=== PATIENT | male | born 1985 | race Caucasian/White ===

== ENCOUNTER 2020-07-15 14:26 | Emergency (ER) | payer MEDICAID, OTHER ==
[~2020-07-15] VITALS: Ht 188 cm; Wt 86.0 kg
[2020-07-15] MEDS: LORazepam 1 MG tablet PO PRN (15:24)
[2020-07-15 15:31] LABS: CLARITY,URINE SLIGHTLY CLOUDY (Clear); COLOR,URINE YELLOW (Yellow); GLUCOSE, URINE NEGATIVE (Neg); KETONES,URINE NEGATIVE (Neg); LEUKOCYTE ESTERASE ,URINE NEGATIVE (Neg); NITRITES, URINE NEGATIVE (Neg); OCCULT BLOOD,URINE NEGATIVE (Neg); PROTEIN,URINE NEGATIVE (Neg)
[2020-07-15 15:38] LABS: UA COLLECTION TYPE CLN CATCH MIDSTREAM
[2020-07-15 15:39] LABS: MUCUS STRANDS MANY /LPF (Neg); SQUAMOUS EPITHELIAL CELL,UR NONE SEEN /LPF (FEW); TRANSITIONAL EPI CELLS,URINE FEW /HPF
[2020-07-15 15:40] LABS: AMORPHOUS URATES 3+; BACTERIA,URINE FEW /HPF (Neg); RBC,URINE 0-2 /HPF (0-2); WBC,URINE 0-4 /HPF (0-4)
[2020-07-15 15:44] LABS: URINE AMPHETAMINE SCREEN NEGATIVE (Neg); URINE BARBITUATE SCREEN NEGATIVE (Neg); URINE BENZODIAZEPINES SCREEN NEGATIVE (Neg); URINE CANNABINOID SCREEN NEGATIVE (Neg); URINE COCAINE SCREEN NEGATIVE (Neg); URINE METHADONE SCREEN NEGATIVE (Neg); URINE OPIATE SCREEN NEGATIVE (Neg); URINE PHENCYCLIDINE SCREEN NEGATIVE (Neg)
--- NOTE | 2020-07-15 16:16 | NUR ---
Patient laying in bed with his evp chief exploration officer at his side. Patient looks very depressed. environmental health officer is waiting to see if patient will be released or placed on a hold. SJ Cruz spoke to SJ Guthrie who worked at [facility]. She suggested a 1 to 1 because she knows who serious the prisoners can be when they want to kill themselves. Patient would not tell me why he wanted to kill himself and Jerri described some scenarios that often happen in the residential. Jerri to go speak to the charge weigher to suggest a 1:1 on this patient for his safety. Continue to monitor.
[2020-07-15 16:26] LABS: HEMOGLOBIN 11.6 g/dl (14.0-17.9); MEAN PLATELET VOLUME 7.9 FL (7.4-10.4); MONOCYTES # (AUTO) 0.5 X10'3 (0-0.9); WHITE BLOOD COUNT 6.1 X10'3 (4.5-11.0)
[2020-07-15 16:28] LABS: BASOPHILS % (AUTO) 0.7 % (0-1); EOSINOPHILS % (AUTO) 0.8 % (0-6); HEMATOCRIT 34.6 % (42.0-52.0); LYMPHOCYTES # (AUTO) 1.3 X10'3 (1.1-4.8); LYMPHOCYTES % (AUTO) 20.8 % (21-51); MEAN CORPUSCULAR HEMOGLOBIN 26.7 PG (27.0-31.0); MEAN CORPUSCULAR HGB CONC 33.4 g/dL (33.0-36.5); MEAN CORPUSCULAR VOLUME 79.7 FL (78-98); NEUTROPHILS # (AUTO) 4.2 X10'3 (1.8-7.7); NEUTROPHILS % (AUTO) 69.7 % (42-75); PLATELET COUNT 432 X10'3 (140-440); RED BLOOD COUNT 4.35 X10'6 (4.70-6.10); RED CELL DISTRIBUTION WIDTH 14.5 % (11.5-14.5)
[2020-07-15 16:39] LABS: ALANINE AMINOTRANSFERASE 27 U/L (12-78); ALBUMIN 3.6 G/DL (3.4-5.0); ALBUMIN/GLOBULIN RATIO 1.2 (1.1-1.5); ALKALINE PHOSPHATASE 62 IU/L (46-116); ANION GAP 8 (8-16); ASPARTATE AMINO TRANSFERASE 13 U/L (10-37); BILIRUBIN,TOTAL 0.3 MG/DL (0.1-1.0); BLOOD UREA NITROGEN 21 MG/DL (7-18); BUN/CREATININE RATIO 19.3 (5.4-32.0); CHLORIDE 104 MMOL/L (99-107); CREATININE 1.09 MG/DL (0.60-1.10); GLUCOSE 109 MG/DL (70-104); POTASSIUM 4.6 MMOL/L (3.5-5.1); SODIUM 140 MMOL/L (135-145); TOTAL PROTEIN 6.5 G/DL (6.4-8.2); eGFR 77 ML/MIN
[2020-07-15 16:48] LABS: ETHANOL < 0.010 GM/DL (0.0-0.010)
--- NOTE | 2020-07-15 16:53 | NUR ---
Matthieu RINCON, evaluating patient.
--- NOTE | 2020-07-15 16:59 | NUR ---
FAXED [facility]
--- NOTE | 2020-07-15 20:20 | NUR ---
Patient resting, lying on back. chest rising and falling . In no apparent distress. Will continue to monitor
--- NOTE | 2020-07-15 22:51 | NUR ---
Patient resting, and snoring. In no distress at this time. Will continue to moniter.
--- NOTE | 2020-07-16 01:59 | NUR ---
Patient just repositioned himself, is now lying on his right side, and in no apparent distress. Will continue to monitor.
--- NOTE | 2020-07-16 03:02 | NUR ---
Patient awake asking for water, and is requesting to call his Crime Data Specialist. He was tiold to wait until later to use the phone. Patient was okay with that and is now in the bathroom.
--- NOTE | 2020-07-16 04:07 | NUR ---
Patient is in bed , chest falling and rising, in no apparent distress.
--- NOTE | 2020-07-16 05:18 | NUR ---
Patient is in bed awake, he keeps checking the time. Manoj wants to call his flight deck officer.
--- NOTE | 2020-07-16 06:42 | NUR ---
Pt. laying in bed on his back, he greets this group underwriter appropriately, rr are even and unlabored.
--- NOTE | 2020-07-16 08:40 | NUR ---
Pt. up to use the BR, able to do so independently, no s/s of distress noted. He then returns back to bed.
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
--- NOTE | 2020-07-16 10:19 | NUR ---
BROTHER SHILPI: [phone]
--- NOTE | 2020-07-16 10:39 | NUR ---
Pt. continues to lay in bed on his back at this time, rr remain even and unlabored.
[2020-07-16] MEDS ORDERED: NO HOME MEDS (12:28)
--- NOTE | 2020-07-16 12:45 | NUR ---
Pt. continues to lay in bed at this time, rr even and unlabored
--- NOTE | 2020-07-16 14:04 | NUR ---
Pt's father is here talking with him at this time per [facility].
--- NOTE | 2020-07-16 14:50 | NUR ---
Pt. continues to lay in bed, father remains at bedside, no s/s of distress noted.
--- NOTE | 2020-07-16 15:56 | NUR ---
Pt's brother visiting with pt. at bedside at this time. Per [facility], pt's family lives out of town so it is important for him to visit with them before he is transferred to another facility. Pt. will possibly transfer to [facility] in [place].
--- NOTE | 2020-07-16 16:21 | NUR ---
Per [facility], pt. will be transferred to [facility] in [place] with pickup time at 1900. Addendum: 07/16/20 at 6271 by [facility]
--- NOTE | 2020-07-16 16:30 | NUR ---
Pt. reported that he had a good visit with his brother, and now his other brother is in to visit at this time. Pt. continues to sit up in bed and remains calm and cooperative during the conversation.
--- NOTE | 2020-07-16 17:50 | NUR ---
Pt. reported anxiety and BP slightly elevated reflecting this, PRN Ativan administered. Will monitor.
[2020-07-16] MEDS: LORazepam 1 MG tablet PO PRN (17:53)
--- NOTE | 2020-07-16 18:05 | NUR ---
Pt. sitting up in bed eating dinner at this time, no s/s of distress noted.
--- NOTE | 2020-07-16 18:49 | NUR ---
Per Johana JUAREZ, pt. needs Covid Swab before he can come to facility. Endorsed to Noc shift who will obtain swab and fax per facility's request.
--- NOTE | 2020-07-16 18:51 | NUR ---
spoke with susie madera regarding [facility] facility request for pt to be COVID swabbed. received verbal order for rapid COVID swab. order placed as received and will fax result to [facility] when available
--- NOTE | 2020-07-16 19:15 | NUR ---
pt laying in bed with no/minimal interactions with staff and no interactions with peers. 1:1 bedside assessment completed and pt appears to be severely minmizing symptoms. pt denies suicidal ideation, self harming thoughts, homicial ideation, auditory or visual hallucinations, or delusions. pt has a depressed affect and does not elaborate when asked about why he is here. pt covid swabbed without issue and results will be faxed to [facility] when available
--- NOTE | 2020-07-16 19:51 | NUR ---
susie madera and charger operator helper nick made aware of pt being high risk due to recent suicide attempt. pt continues to deny all and per susie madera, pt does not require 1:1 observation and continued line of sight observation is acceptable at this time. will continue to monitor pt as line of sight as pt is in bed 23 with no current behaviors or issues.
--- NOTE | 2020-07-16 20:03 | NUR ---
faxed negative COVID test result to [facility] at [phone]. their phone number is [phone]
--- NOTE | 2020-07-16 21:05 | NUR ---
MOVED FROM OVERFLOW AREA TO MAIN ER BED 16
--- NOTE | 2020-07-16 21:10 | NUR ---
pt moved to ed bed 16
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
--- NOTE | 2020-07-17 08:50 | NUR ---
rcvd call from [facility] pt is set to arrive there at 1330, spoke to Davonte Rios [phone] admissions number is [phone]
--- NOTE | 2020-07-17 10:00 | NUR ---
PT SITTING UP IN BED AFTER WALKING TO BATHROOM, NO DISTRESS NOTED.
--- NOTE | 2020-07-17 12:05 | NUR ---
PATIENT RESTING COMFORTABLE ON RIGHT SIDE, NO SIGNS OF DISTRESS.
--- NOTE | 2020-07-17 16:10 | NUR ---
PT ALERT NO DISTRESS NOTED. NO NEEDS AT THIS TIME.
--- NOTE | 2020-07-17 16:11 | NUR ---
CALLED [facility] OFFICE AND PT WAS REJECTED FROM [facility] AFTER REVIEWING CHART. STILL LOOKING FOR PLACEMENT.
--- NOTE | 2020-07-17 19:15 | NUR ---
pt up to use the restroom. pt has a steady gait, no distress noted.
--- NOTE | 2020-07-17 19:15 | NUR ---
pt is reluctant to discuss anything with this rn. Pt denies any complaints at this time.
[2020-07-17] MEDS ORDERED: acetaminophen 325mg tablet PO ONE (19:20)
--- NOTE | 2020-07-17 20:03 | NUR ---
pt is resting quietly, will not discuss anything, appears annoyed when asked questions.
--- NOTE | 2020-07-17 23:17 | NUR ---
pt continues to sleep, rr unlabored, no s/s of distress noted.
--- NOTE | 2020-07-18 01:05 | NUR ---
Pt is sleeping, rr unlabored, will continue to monitor.
--- NOTE | 2020-07-18 06:22 | NUR ---
Received report on the patient from cook night. The patient was asleep on his back, his respirations appeared normal and was not in any distress at this time.
--- NOTE | 2020-07-18 07:16 | NUR ---
patient is awake laying in bed looking up at ceiling, the tech and myself asked him if he needed anything and he decided not to answer. His respirations appear normal and he is not in any distress at this time.
--- NOTE | 2020-07-18 08:24 | NUR ---
the patient is awake and laying in the bed in the supine position with his hands behind his head. The patient refused his breakfast and does not use his words very often more so just his hands. The patient's respirations appear normal and he is not in any distress at this time.
--- NOTE | 2020-07-18 09:05 | NUR ---
Breaking Primary RN, pt is supine in bed, eyes closed, regular breathing apparent, no needs at this time
--- NOTE | 2020-07-18 09:29 | NUR ---
the patient is laying on his back with his hands behind his head with his eyes closed at this time. The patient's respirations appeared normal and in no distress at this time.
--- NOTE | 2020-07-18 10:31 | NUR ---
patient is laying on his back awake, his respirations appear normal and he is not in any distress at this time.
--- NOTE | 2020-07-18 11:36 | NUR ---
the patient is resting comfortably in his bed laying on his back, one of the patient's brothers arrived at bedside to visit him. The patient's respirations appear normal and he is not in any distress at this time.
--- NOTE | 2020-07-18 12:08 | NUR ---
patient's brother Fermín has left the bedside, now patient's brother Andrzej is at bedside. The patient continues to be in stable condition resting comfortably on his back with his hands behind his head. his respirations appear normal and he is not in any distress at this time.
--- NOTE | 2020-07-18 13:10 | NUR ---
Breaking primary RN, pt is supine in bed, eyes closed, regular breathing present, no needs at this time
--- NOTE | 2020-07-18 13:48 | NUR ---
the patient is sleeping at this time laying on his back, his respirations appear normal and he is not in any distress at this time.
--- NOTE | 2020-07-18 14:30 | NUR ---
patient is currently laying in bed with the covers pulled up to his neck and sleeping. The patient's respirations appear normal and there are no signs of distress at this time.
--- NOTE | 2020-07-18 15:24 | NUR ---
the patient is resting comfortably in bed at the moment, his respirations appear normal and he is not in any distress at this time.
--- NOTE | 2020-07-18 16:24 | NUR ---
the patient is awak and laying on his right side with his hands above his head. The patient's respirations appear normal and he is not in any distress at this time.
--- NOTE | 2020-07-18 17:25 | NUR ---
the patient was laying awake in the bed, when the tech went to do vital signs. The patient's respirations appeared normal and there were no signs of distress. After the vitals were completed the patient resumed laying awake.
--- NOTE | 2020-07-18 19:11 | NUR ---
Patient has been sleeping since shift change. Low fowlers position. No distress. In direct view from nurses station.
--- NOTE | 2020-07-18 21:42 | NUR ---
Patient is sleeping quietly, low fowlers position in bed.
[2020-07-18 21:59] VITALS: BP 122/79
[2020-07-18] MEDS ORDERED: FLU VACC QS2020-21(6MOS UP)/PF 60 MCG/0.5 ML SYRINGE IMVAC ONE (22:00)
[2020-07-19] MEDS ORDERED: traZODone 50mg tablet PO SCH (20:00)
[2020-07-20] MEDS ORDERED: lurasidone 20mg tablet PO SCH (07:30)
== END 2020-07-18 22:04 ==
LOC: ER 14:27 → ADULT MH 07-18 15:20 → UNDOADMIN 07-18 15:20
DX: F32.9 Major depressive disorder, single episode, unspecified (principal); Z20.828 Contact with and (suspected) exposure to other viral communicable diseases; R45.851 Suicidal ideations; F12.90 Cannabis use, unspecified, uncomplicated; F15.90 Other stimulant use, unspecified, uncomplicated
CPT/HCPCS: 36415; 80053; 80305; 80320; 81001; 84443; 85025; 87081; 87635; 99285; C9803

== ENCOUNTER 2023-02-11 11:36 | Inpatient (IN) | payer MEDICAID, OTHER ==
[~2023-02-11] VITALS: Ht 188 cm; Wt 78.6 kg
[~2023-02-11 11:36] MED LIST: BUPR-72 PO; BUSP10TA10 PO; LORA-269 PO; LURA20TA8 PO; SERT-433 PO; TRAZ-256 PO
[2023-02-11 13:15] LABS: BASOPHILS % (AUTO) 0.4 % (0-1); EOSINOPHILS % (AUTO) 0.5 % (0-6); HEMATOCRIT 48.3 % (42.0-52.0); HEMOGLOBIN 16.3 g/dl (14.0-17.9); LYMPHOCYTES # (AUTO) 1.2 X10'3 (1.1-4.8); LYMPHOCYTES % (AUTO) 15.3 % (21-51); MEAN CORPUSCULAR HGB CONC 33.7 g/dL (33.0-36.5); MEAN CORPUSCULAR VOLUME 82.9 FL (78-98); MEAN PLATELET VOLUME 8.1 FL (7.4-10.4); MONOCYTES # (AUTO) 0.7 X10'3 (0-0.9); MONOCYTES % (AUTO) 8.4 % (2-12); NEUTROPHILS % (AUTO) 75.4 % (42-75); PLATELET COUNT 307 X10'3 (140-440); RED BLOOD COUNT 5.83 X10'6 (4.70-6.10); RED CELL DISTRIBUTION WIDTH 14.5 % (11.5-14.5); WHITE BLOOD COUNT 7.9 X10'3 (4.5-11.0)
[2023-02-11 13:43] LABS: ALANINE AMINOTRANSFERASE 29 U/L (12-78); ALBUMIN/GLOBULIN RATIO 1.3 (1.1-1.5); ALKALINE PHOSPHATASE 45 IU/L (46-116); ANION GAP 10 (8-16); ASPARTATE AMINO TRANSFERASE 17 U/L (10-37); BILIRUBIN,TOTAL 0.6 MG/DL (0.1-1.0); BLOOD UREA NITROGEN 13 MG/DL (7-18); BUN/CREATININE RATIO 13.7 (10.0-20.0); CALCIUM 9.5 MG/DL (8.5-10.1); CHLORIDE 103 MMOL/L (99-107); CREATININE 0.95 MG/DL (0.60-1.10); ETHANOL < 10 MG/DL (<10); GLUCOSE 104 MG/DL (70-104); POTASSIUM 3.7 MMOL/L (3.5-5.1); SODIUM 140 MMOL/L (135-145); TOTAL CARBON DIOXIDE 27.4 MMOL/L (24-32); eCRCL 124 ML/MIN; eGFR 89 ML/MIN
[2023-02-11 13:53] LABS: URINE AMPHETAMINE SCREEN POSITIVE (Neg); URINE BARBITUATE SCREEN NEGATIVE (Neg); URINE BENZODIAZEPINES SCREEN NEGATIVE (Neg); URINE CANNABINOID SCREEN NEGATIVE (Neg); URINE COCAINE SCREEN NEGATIVE (Neg); URINE METHADONE SCREEN NEGATIVE (Neg); URINE OPIATE SCREEN NEGATIVE (Neg); URINE PHENCYCLIDINE SCREEN NEGATIVE (Neg)
--- NOTE | 2023-02-11 14:23 | NUR ---
Patient brought to ER overflow bed 24 from main ER. He ambulated accompanied by [facility].
[2023-02-11] MEDS ORDERED: CLON0.5T4 PO (15:22)
[2023-02-11] MEDS ORDERED: traZODone 50mg tablet PO PRN (16:15)
[2023-02-11] MEDS ORDERED: clonazePAM 0.5mg tablet PO PRN ×2 (16:15→20:35)
--- NOTE | 2023-02-11 16:34 | NUR ---
Patient lying on his back with eyes open. No s/sx of distress
[2023-02-11] MEDS ORDERED: BUPR-230 PO (17:20)
--- NOTE | 2023-02-11 17:54 | NUR ---
Patient with [facility] at this time.
[2023-02-11] MEDS ORDERED: BUSP15TA3 PO (18:20)
[2023-02-11] MEDS ORDERED: FLO44IN PO (18:20)
[2023-02-11] MEDS ORDERED: BUPR-352 PO (18:20)
[2023-02-11] MEDS ORDERED: CETI10TA14 PO (18:20)
--- NOTE | 2023-02-11 18:30 | NUR ---
Assumed patient care. Pleasant and cooperative. Sitting on bed. Will continue to monitor.
--- NOTE | 2023-02-11 19:00 | NUR ---
Yonatan came to visit. [facility] completed evaluation. Plans to transfer to [facility] this evening.
[2023-02-11] MEDS ORDERED: ALBU18HF2 INH (19:46)
[2023-02-11] MEDS ORDERED: buPROPion SR 150mg tablet PO SCH ×2 (20:00)
[2023-02-11] MEDS ORDERED: albuterol 2.5 MG/3 ML nebule NEB PRN (20:38)
[2023-02-11] MEDS: busPIRone 15mg tablet PO SCH (20:57)
[2023-02-11 21:00] LABS: BILIRUBIN,URINE MODERATE (Neg); CLARITY,URINE CLOUDY (Clear); COLOR,URINE YELLOW (Yellow); GLUCOSE, URINE NEGATIVE (Neg); KETONES,URINE 15 mg/dl (Neg); LEUKOCYTE ESTERASE ,URINE NEGATIVE (Neg); NITRITES, URINE NEGATIVE (Neg); OCCULT BLOOD,URINE NEGATIVE (Neg); PROTEIN,URINE NEGATIVE (Neg)
[2023-02-11] MEDS ORDERED: busPIRone 5mg tablet PO SCH (21:00)
[2023-02-11 21:54] LABS: UA COLLECTION TYPE CLN CATCH MIDSTREAM
[2023-02-11 21:55] LABS: MUCUS STRANDS MANY /LPF (Neg); SQUAMOUS EPITHELIAL CELL,UR NONE SEEN /LPF (FEW)
[2023-02-11 21:56] LABS: BACTERIA,URINE FEW /HPF (Neg); RBC,URINE NONE SEEN /HPF (0-2); WBC,URINE 0-4 /HPF (0-4)
[2023-02-11 21:57] LABS: WBC CASTS 0-3 /LPF (NEGATIVE)
--- NOTE | 2023-02-11 23:00 | NUR ---
Patient appears to be sleeping. Pending discharge this evening to [facility].
--- NOTE | 2023-02-11 23:42 | NUR ---
Sudarshan EMT here to transfer patient to [facility]. Discharged at this time via W/C. Security here for transport.
[2023-02-11 23:48] VITALS: BP 124/79; PULSE 70; RESP 16; TEMP 97.8; O2SAT 98
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
[2023-02-12 00:49] VITALS: RESP 16; O2SAT 98
[2023-02-12 07:00] VITALS: RESP 12; O2SAT 97
[2023-02-12 08:00] VITALS: BP 116/75; PULSE 80; RESP 14; TEMP 98.5; O2SAT 99
[2023-02-12] MEDS: cetirizine 10mg tablet PO SCH (08:00)
[2023-02-12] MEDS: busPIRone 15mg tablet PO SCH ×3 (08:00→21:05)
[2023-02-12] MEDS: buPROPion SR 150mg tablet PO SCH ×2 (08:00→10:36)
[2023-02-12] MEDS: FLUTICASONE PROPIONATE PO SCH ×2 (08:00→21:05)
[2023-02-12] MEDS ORDERED: sertraline 50mg tablet PO ONE (08:00)
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
[2023-02-12 19:00] VITALS: RESP 16; O2SAT 97
[2023-02-12 20:00] VITALS: RESP 17
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
--- NOTE | 2023-02-13 06:06 | NUR ---
HOUSEKEEPER SUPERVISOR documentation: I have reviewed and agree with all interventions, assessments performed and documented by Ammon MANUEL.
[2023-02-13] MEDS: buPROPion SR 150mg tablet PO SCH ×2 (07:33→08:28)
[2023-02-13] MEDS: cetirizine 10mg tablet PO SCH ×2 (07:33→08:28)
[2023-02-13] MEDS: busPIRone 15mg tablet PO SCH ×3 (07:33→20:00)
[2023-02-13 08:00] VITALS: BP 128/81; PULSE 66; RESP 18; TEMP 97.8; O2SAT 99
[2023-02-13] MEDS: budesonide 0.5mg/2ml UD nebule IH SCH ×3 (10:15→20:44)
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
[2023-02-13 19:00] VITALS: RESP 18
[2023-02-13 20:00] VITALS: RESP 18
--- NOTE | 2023-02-13 20:11 | NUR ---
Pt refused vital signs Addendum: 02/13/23 at 2012 by Ammon Jerry LVN, LVN Amended: Links added.
[2023-02-13 20:45] VITALS: PULSE 79; RESP 20; O2SAT 99
[2023-02-13 20:52] VITALS: PULSE 84; RESP 16
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
[2023-02-14 07:00] VITALS: RESP 16
[2023-02-14] MEDS: busPIRone 15mg tablet PO SCH ×2 (08:00→20:57)
[2023-02-14] MEDS: buPROPion SR 150mg tablet PO SCH (08:00)
[2023-02-14] MEDS: cetirizine 10mg tablet PO SCH (08:00)
[2023-02-14] MEDS: budesonide 0.5mg/2ml UD nebule IH SCH ×2 (08:19→20:28)
[2023-02-14] MEDS ORDERED: LORazepam 1 MG tablet PO ONE (13:15)
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
[2023-02-14 19:00] VITALS: RESP 18
[2023-02-14 20:00] VITALS: RESP 16
[2023-02-14] MEDS ORDERED: clonazePAM 0.5mg tablet PO SCH (20:00)
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
--- NOTE | 2023-02-15 05:45 | NUR ---
CABIN SUPERVISOR documentation: I have reviewed and agree with all interventions, assessments performed and documented by Ammon MANUEL.
[2023-02-15 07:00] VITALS: RESP 16
[2023-02-15 08:00] VITALS: RESP 16
[2023-02-15] MEDS: cetirizine 10mg tablet PO SCH (08:00)
[2023-02-15] MEDS: busPIRone 15mg tablet PO SCH ×2 (08:00→20:15)
[2023-02-15] MEDS: clonazePAM 0.5mg tablet PO SCH ×2 (08:00→20:20)
[2023-02-15] MEDS: buPROPion SR 150mg tablet PO SCH (08:00)
[2023-02-15] MEDS: budesonide 0.5mg/2ml UD nebule IH SCH (08:48)
--- NOTE | 2023-02-15 12:21 | NUR ---
CASE MANAGEMENT This Visiting Teacher went to see Pt. today. He refused to speak with me. He was laying on his bed starting straight ahead. Let him know I would come back another time. Marge Braga LCSW
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
[2023-02-15 20:00] VITALS: RESP 16
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
[2023-02-16] MEDS: cetirizine 10mg tablet PO SCH (08:00)
[2023-02-16] MEDS: buPROPion SR 150mg tablet PO SCH (08:00)
[2023-02-16] MEDS: clonazePAM 0.5mg tablet PO SCH ×2 (08:00→19:53)
[2023-02-16] MEDS: busPIRone 15mg tablet PO SCH ×2 (08:00→19:53)
[2023-02-16] MEDS: budesonide 0.5mg/2ml UD nebule IH SCH (08:42)
[2023-02-16] MEDS ORDERED: LORazepam 1 MG tablet PO ONE (17:10)
[2023-02-16] MEDS: ibuprofen 200mg tablet PO PRN (17:15)
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
[2023-02-16] MEDS: LORazepam 1 MG tablet PO SCH (20:20)
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
[2023-02-17 07:30] VITALS: BP 122/77; PULSE 68; RESP 16; TEMP 99.1; O2SAT 16; O2SAT 99
[2023-02-17] MEDS: busPIRone 15mg tablet PO SCH ×2 (08:00→20:13)
[2023-02-17] MEDS: cetirizine 10mg tablet PO SCH (08:00)
[2023-02-17] MEDS: LORazepam 1 MG tablet PO SCH ×3 (08:26→20:13)
[2023-02-17] MEDS: traMADol 50MG tablet PO PRN ×2 (09:18→16:09)
[2023-02-17] MEDS: ibuprofen 200mg tablet PO PRN (09:23)
[2023-02-17] MEDS: LORazepam 0.5 MG tablet PO PRN (11:33)
--- NOTE | 2023-02-17 12:39 | NUR ---
Initial: Pt admit for DTS with SI. Currently on a regular diet with fluctuating PO intake, documented with average 81% PO intake of nine meals though refusal of six meals making average PO intake since admit 48% only meeting 59% estimated energy needs and 80% estimated protein needs. Noted PO intake up to 100% at two most recent meals. Hopefully PO intake will continue to improve. Per cone chocolate dipper pt does participate in snacks with occasional refusal. LBM 02/13 per EMR however pt documented to be refusing the physical assessments so unsure if this is patient's true LBM. Pt documented with no GI symptoms. D/w dietary to send prunes and prune juice with next meal to assist with a BM should this actually be patients LBM. Will continue to follow and monitor need for further nutrition intervention. Recommendations: 1) Continue regular diet 2) Encourage PO intake; monitor need for ONS 3) Consider routine bowel care if pt truly has not had a BM x 4 days 4) Weekly scaled weights Addendum: 02/17/23 at [address] Amended: Links added.
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
[2023-02-17 19:30] VITALS: RESP 17; O2SAT 99
[2023-02-17 20:00] VITALS: BP 114/77; PULSE 57; RESP 17; TEMP 97.1; O2SAT 99
[2023-02-17] MEDS: traZODone 50mg tablet PO PRN (20:13)
[2023-02-17] MEDS: NICOTINE POLACRILEX 2 MG LOZENGE BC PRN (20:13)
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
[2023-02-18 07:00] VITALS: RESP 16
[2023-02-18 08:00] VITALS: RESP 12
[2023-02-18] MEDS: cetirizine 10mg tablet PO SCH (08:00)
[2023-02-18] MEDS: LORazepam 1 MG tablet PO SCH ×3 (08:56→21:00)
[2023-02-18] MEDS: busPIRone 15mg tablet PO SCH ×2 (08:56→20:00)
[2023-02-18] MEDS: traMADol 50MG tablet PO PRN ×2 (08:57→15:06)
[2023-02-18] MEDS: NICOTINE POLACRILEX 2 MG LOZENGE BC PRN (11:25)
[2023-02-18] MEDS: LORazepam 0.5 MG tablet PO PRN (11:32)
[2023-02-18] MEDS: ibuprofen 200mg tablet PO PRN (15:05)
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
[2023-02-18 19:00] VITALS: RESP 14
[2023-02-18 20:00] VITALS: RESP 14
[2023-02-18] MEDS: buPROPion SR 150mg tablet PO SCH (20:00)
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
[2023-02-19 08:00] VITALS: RESP 14
[2023-02-19] MEDS: buPROPion SR 150mg tablet PO SCH ×2 (08:00→20:21)
[2023-02-19] MEDS: busPIRone 15mg tablet PO SCH ×2 (08:00→20:21)
[2023-02-19] MEDS: LORazepam 1 MG tablet PO SCH ×3 (08:05→20:21)
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
[2023-02-19] MEDS: LORazepam 0.5 MG tablet PO PRN (18:42)
[2023-02-19 19:00] VITALS: RESP 16
[2023-02-19 19:55] VITALS: RESP 16
[2023-02-19] MEDS: traZODone 50mg tablet PO PRN (21:55)
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
[2023-02-20 07:00] VITALS: RESP 16
[2023-02-20 08:00] VITALS: RESP 16
[2023-02-20] MEDS: busPIRone 15mg tablet PO SCH ×2 (08:00→21:37)
[2023-02-20] MEDS: LORazepam 1 MG tablet PO SCH ×3 (08:00→21:37)
[2023-02-20] MEDS: buPROPion SR 150mg tablet PO SCH ×2 (08:00→21:40)
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
[2023-02-20 19:00] VITALS: RESP 18
[2023-02-20 20:00] VITALS: RESP 18
[2023-02-20] MEDS: traZODone 50mg tablet PO PRN (21:37)
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
--- NOTE | 2023-02-21 05:46 | NUR ---
REAL ESTATE EXECUTIVE ASSISTANT documentation: I have reviewed and agree with all interventions, assessments performed and documented by Ammon MANUEL.
[2023-02-21 07:00] VITALS: RESP 14
[2023-02-21 08:00] VITALS: BP 109/67; PULSE 52; RESP 14; TEMP 97.5; O2SAT 98
[2023-02-21] MEDS: buPROPion SR 150mg tablet PO SCH ×2 (08:00→21:07)
[2023-02-21] MEDS: LORazepam 1 MG tablet PO SCH ×3 (08:00→21:07)
[2023-02-21] MEDS: busPIRone 15mg tablet PO SCH ×2 (08:00→21:07)
--- NOTE | 2023-02-21 08:55 | NUR ---
F/u 02/21: Pt increasing in meal refusals past 10 of 17 meals though eats 100% when participates w/ occasional snacks overall meeting ~50% kcal and ~75% protein estimated needs. LBM 02/17 though pt continues to refuse physical assessment and staff interactions per EMR. SUSIE d/w RN who reports unsure of pt true LBM given resistance to care and unsure if pt acceptance of ONS given this. SUSIE d/w RN recommends Ensure Enlive TIDWM if pt amenable to ONS to assist meeting needs. Will monitor for further nutrition intervention needs. Recommendations: 1) Continue regular diet; encourage PO 2) Ensure Enlive TIDWM if pt amenable 3) Consider routine bowel care if pt truly has not had a BM x 4 days 4) Weekly scaled weights Addendum: 02/21/23 at [address] Amended: Links added.
[2023-02-21] MEDS: LORazepam 0.5 MG tablet PO PRN (15:07)
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
[2023-02-21 19:00] VITALS: RESP 16
[2023-02-21 20:00] VITALS: RESP 16
[2023-02-21] MEDS: traZODone 50mg tablet PO PRN (21:07)
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
--- NOTE | 2023-02-22 05:35 | NUR ---
NUCLEAR CONTROL OPERATOR documentation: I have reviewed and agree with all interventions, assessments performed and documented by Ammon MANUEL.
[2023-02-22 07:30] VITALS: RESP 16; O2SAT 98
[2023-02-22] MEDS: buPROPion SR 150mg tablet PO SCH ×2 (07:48→20:28)
[2023-02-22] MEDS: LORazepam 1 MG tablet PO SCH ×2 (07:48→12:48)
[2023-02-22] MEDS: busPIRone 15mg tablet PO SCH ×2 (07:48→20:28)
[2023-02-22 07:52] VITALS: BP 111/66; PULSE 78; RESP 16; TEMP 98.9; O2SAT 98
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
[2023-02-22] MEDS: NICOTINE POLACRILEX 2 MG LOZENGE BC PRN ×2 (18:14→20:31)
[2023-02-22] MEDS: LORazepam 0.5 MG tablet PO PRN (18:14)
[2023-02-22 19:50] VITALS: BP 118/65; PULSE 76; RESP 16; TEMP 98.6; O2SAT 99
[2023-02-22] MEDS: traZODone 50mg tablet PO PRN (20:28)
[2023-02-22] MEDS: clonazePAM 1mg tablet PO SCH (20:28)
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
--- NOTE | 2023-02-23 04:40 | NUR ---
VISUAL DESIGNER documentation: I have reviewed and agree with all interventions, assessments performed and documented by Sydni Brandt LVN.
[2023-02-23] MEDS: NICOTINE POLACRILEX 2 MG LOZENGE BC PRN ×3 (06:31→11:06)
[2023-02-23 07:30] VITALS: BP 116/66; PULSE 60; RESP 12; TEMP 97.7; O2SAT 98
[2023-02-23] MEDS: buPROPion SR 150mg tablet PO SCH (08:03)
[2023-02-23] MEDS: busPIRone 15mg tablet PO SCH (08:03)
[2023-02-23] MEDS: clonazePAM 1mg tablet PO SCH (08:03)
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
--- NOTE | 2023-02-23 17:52 | NUR ---
DISCHARGE NOTE: Pt. discharged to home. Pt. states he wants to walk home. Pt. discharged with all belongings and valuables. RN went over discharge paperwork with pt. pt. verbalized understanding but refused to sign paperwork except for firearms restriction form. Pt. denies SI/HI A/V hallucinations. Pt. is A&Ox4 and in no apparent distress.
== END 2023-02-23 17:52 | disposition home or self-care (01) | DRG 881 ==
LOC: ER 11:37 → ED HOLD 19:50 → ADULT MH 02-12 00:02
PROVIDERS: ADMIT Psychiatry & Neurology Psychiatry; ATTEND Psychiatry & Neurology Psychiatry
DX: F32.A Depression, unspecified (principal); R45.851 Suicidal ideations; F90.9 Attention-deficit hyperactivity disorder, unspecified type; J45.909 Unspecified asthma, uncomplicated; F41.1 Generalized anxiety disorder; F15.10 Other stimulant abuse, uncomplicated; Z79.899 Other long term (current) drug therapy; Z98.1 Arthrodesis status
CPT/HCPCS: 36415; 80053; 80305; 80320; 81001; 84443; 85025; 87811; 94640; 94760; 99285; G0378

== ENCOUNTER 2023-02-26 15:13 | Emergency (ER) | payer OTHER ==
[~2023-02-26] VITALS: Ht 188 cm; Wt 84.1 kg
[~2023-02-26 15:13] MED LIST changes: +ALBU18HF2 INH; +BUPR-352 PO; -BUPR-72 PO; -BUSP10TA10 PO; +BUSP15TA3 PO; +CETI10TA14 PO; +CLON0.5T4 PO; +FLO44IN PO; -LORA-269 PO; -LURA20TA8 PO; -SERT-433 PO; -TRAZ-256 PO
[2023-02-26 18:13] LABS: BASOPHILS % (AUTO) 0.3 % (0-1); EOSINOPHILS # (AUTO) 0.1 X10'3 (0-0.9); EOSINOPHILS % (AUTO) 0.9 % (0-6); HEMOGLOBIN 16.7 g/dl (14.0-17.9); LYMPHOCYTES % (AUTO) 24.4 % (21-51); MEAN CORPUSCULAR HEMOGLOBIN 27.2 PG (27.0-31.0); MEAN CORPUSCULAR HGB CONC 32.8 g/dL (33.0-36.5); MEAN CORPUSCULAR VOLUME 83.1 FL (78-98); MEAN PLATELET VOLUME 8.3 FL (7.4-10.4); MONOCYTES # (AUTO) 0.6 X10'3 (0-0.9); MONOCYTES % (AUTO) 7.4 % (2-12); NEUTROPHILS # (AUTO) 5.5 X10'3 (1.8-7.7); PLATELET COUNT 303 X10'3 (140-440); RED BLOOD COUNT 6.14 X10'6 (4.70-6.10); RED CELL DISTRIBUTION WIDTH 14.4 % (11.5-14.5); WHITE BLOOD COUNT 8.2 X10'3 (4.5-11.0)
[2023-02-26 18:29] LABS: ALANINE AMINOTRANSFERASE 21 U/L (12-78); ALBUMIN 4.1 G/DL (3.4-5.0); ALBUMIN/GLOBULIN RATIO 1.4 (1.1-1.5); ALKALINE PHOSPHATASE 77 IU/L (46-116); ANION GAP 5 (8-16); ASPARTATE AMINO TRANSFERASE 16 U/L (10-37); BILIRUBIN,TOTAL 0.7 MG/DL (0.1-1.0); BLOOD UREA NITROGEN 22 MG/DL (7-18); BUN/CREATININE RATIO 17.3 (10.0-20.0); CALCIUM 9.6 MG/DL (8.5-10.1); CHLORIDE 104 MMOL/L (99-107); CREATININE 1.27 MG/DL (0.60-1.10); ETHANOL < 10 MG/DL (<10); GLUCOSE 100 MG/DL (70-104); POTASSIUM 4.2 MMOL/L (3.5-5.1); SODIUM 140 MMOL/L (135-145); TOTAL PROTEIN 7.1 G/DL (6.4-8.2); eCRCL 93 ML/MIN; eGFR 64 ML/MIN
--- NOTE | 2023-02-26 19:11 | NUR ---
The patient moved to bed 22 from bed 17 in the main ER. He is on a 5150 written by [facility]. He was cooperative with changing into green scrubs. He stated he cannot yet give a urine sample but stated he will as soon as he can. He was given a dinner tray.
--- NOTE | 2023-02-26 19:30 | NUR ---
The patient is almost completely unresponsive. No wound evident on his neck. He refused to answer questions from registration staff. He is on a 5150 by [facility] for being a danger to himself. It is unclear if he is responding to internal stimuli because he is nonverbal and stares straight ahead with no expression.
[2023-02-26] MEDS ORDERED: LORazepam 1 MG tablet PO ONE (19:50)
[2023-02-26 20:16] LABS: BILIRUBIN,URINE SMALL (Neg); CLARITY,URINE SLIGHTLY CLOUDY (Clear); COLOR,URINE YELLOW (Yellow); GLUCOSE, URINE NEGATIVE (Neg); KETONES,URINE NEGATIVE (Neg); LEUKOCYTE ESTERASE ,URINE NEGATIVE (Neg); NITRITES, URINE NEGATIVE (Neg); OCCULT BLOOD,URINE NEGATIVE (Neg); PROTEIN,URINE NEGATIVE (Neg); UROBILINOGEN,URINE 0.2 E.U/dL (0.2-1.0)
[2023-02-26] MEDS ORDERED: clonazePAM 0.5mg tablet PO PRN (20:20)
[2023-02-26] MEDS ORDERED: albuterol 2.5 MG/3 ML nebule NEB PRN (20:20)
[2023-02-26 20:23] LABS: UA COLLECTION TYPE VOIDED
[2023-02-26 20:24] LABS: SQUAMOUS EPITHELIAL CELL,UR FEW /LPF (FEW)
[2023-02-26 20:26] LABS: BACTERIA,URINE 1+ /HPF (Neg); RBC,URINE 0-2 /HPF (0-2); WBC,URINE 0-4 /HPF (0-4)
[2023-02-26 20:46] LABS: URINE AMPHETAMINE SCREEN NEGATIVE (Neg); URINE BARBITUATE SCREEN NEGATIVE (Neg); URINE BENZODIAZEPINES SCREEN NEGATIVE (Neg); URINE CANNABINOID SCREEN NEGATIVE (Neg); URINE COCAINE SCREEN NEGATIVE (Neg); URINE METHADONE SCREEN NEGATIVE (Neg); URINE OPIATE SCREEN NEGATIVE (Neg); URINE PHENCYCLIDINE SCREEN NEGATIVE (Neg)
--- NOTE | 2023-02-26 20:58 | NUR ---
The patient is awake and eating
--- NOTE | 2023-02-26 20:58 | NUR ---
PACKET SENT TO [facility]
--- NOTE | 2023-02-26 21:01 | NUR ---
The patient's fiance, Joseph, called and was wanting information about how Cosmo is doing but at this time he does not want any information to be released and she was informed.
--- NOTE | 2023-02-26 22:59 | NUR ---
The patient appears to be sleeping
--- NOTE | 2023-02-27 01:01 | NUR ---
The patient appears to be sleeping
--- NOTE | 2023-02-27 03:00 | NUR ---
The patient appears to be sleeping
--- NOTE | 2023-02-27 05:39 | NUR ---
The patient appears to be sleeping.
[2023-02-27 05:51] VITALS: BP 96/67; PULSE 73; RESP 16; O2SAT 100
--- NOTE | 2023-02-27 07:43 | NUR ---
Received Pt in bed sleeping w/o distress at the beginning of the shift. Pt remains sleeping and chart has been reviewed. Pt up to bathroom and returned to bed.
[2023-02-27] MEDS ORDERED: fluticasone nasal spray 16GM bottle NS SCH (08:00)
[2023-02-27] MEDS ORDERED: buPROPion SR 150mg tablet PO SCH (08:00)
[2023-02-27] MEDS ORDERED: busPIRone 15mg tablet PO SCH (08:00)
[2023-02-27] MEDS ORDERED: cetirizine 10mg tablet PO SCH (08:00)
--- NOTE | 2023-02-27 09:30 | NUR ---
Pt woke and ate breakfast. Pt took buspar and welbutrin this morning. Pt guarded with information and vascilated about wanting to see his GF.
--- NOTE | 2023-02-27 11:35 | NUR ---
Receive PC from [facility] office informing that pt has been accepted for admission to [facility], and that transportation may not be available until evening. Nurse to nurse done with accepting in-pt facility.
--- NOTE | 2023-02-27 11:59 | NUR ---
Pt was seen by [facility] clinician and was placed on a 5150 hold for DTS and GD. Pt has had two visits with GF and is currently visiting with her.
--- NOTE | 2023-02-27 12:30 | NUR ---
Pt c/o anxiety and requested a prn medication. Pt given Klonopin 1mg prn which he willingly took, and then visited with his GF again.
--- NOTE | 2023-02-27 14:54 | NUR ---
Pt ate all of his lunch and was up to bathroom. Accepting facility is requiring a new covid test and a new Binax covid test completed and sent to lab. Pt is in bed currently sleeping w/o distress.
--- NOTE | 2023-02-27 15:45 | NUR ---
Pt left [facility] with [facility] dray driver and security expert, to be driven to [facility] in [place]. Pt belongings returned and Pt placed in his own clothes. Pt left unit at 1545.
[2023-02-27 16:21] VITALS: TEMP 97.3
--- NOTE | 2023-02-27 18:25 | NUR ---
Nurse to nurse with Will at [facility]
== END 2023-02-27 16:25 ==
LOC: ER 15:14
DX: F29 Unspecified psychosis not due to a substance or known physiological condition (principal); Z20.822 Contact with and (suspected) exposure to COVID-19; F32.A Depression, unspecified; F15.10 Other stimulant abuse, uncomplicated; F12.10 Cannabis abuse, uncomplicated; Z79.899 Other long term (current) drug therapy; Z79.1 Long term (current) use of non-steroidal anti-inflammatories (NSAID)
CPT/HCPCS: 36415; 80053; 80305; 80320; 81001; 85025; 87811; 99285

== ENCOUNTER 2023-05-24 10:57 | Emergency (ER) | payer OTHER ==
[~2023-05-24] VITALS: Ht 182.9 cm; Wt 81.8 kg
[2023-05-24 11:08] VITALS: BP 139/82; PULSE 41; RESP 16; O2SAT 99
[2023-05-24 12:21] VITALS: TEMP 98
== END 2023-05-24 12:25 | disposition left against medical advice (07) ==
LOC: ER 10:57
DX: F41.9 Anxiety disorder, unspecified (principal); F12.10 Cannabis abuse, uncomplicated; F15.10 Other stimulant abuse, uncomplicated; Z79.899 Other long term (current) drug therapy
CPT/HCPCS: 99285

== ENCOUNTER 2023-05-24 13:22 | Emergency (ER) | payer OTHER | END 2023-05-24 13:58 | disposition left against medical advice (07) | LOC: ER 13:23 | DX: F29 Unspecified psychosis not due to a substance or known physiological condition (principal); Z53.21 Procedure and treatment not carried out due to patient leaving prior to being seen by health care provider ==